=== PATIENT | male | born 1955 | race Hispanic/Latino ===

== ENCOUNTER 2023-02-18 11:00 | Observation (INO) | payer MEDICARE ==
[~2023-02-18] VITALS: Ht 174 cm; Wt 92.5 kg
[2023-02-24 10:21] VITALS: BP 130/70; PULSE 60; RESP 18
[2023-02-24 10:31] LABS: BASOPHILS # (AUTO) 0.02 K/uL (0.00-0.20); BASOPHILS % (AUTO) 0.5 % (0.0-5.0); EOSINOPHILS # (AUTO) 0.19 K/uL (0.00-0.70); EOSINOPHILS % (AUTO) 5.1 % (0.0-8.0); HEMATOCRIT 40.2 % (42-54); IMMATURE GRANULOCYTE ABSOLUTE 0.02 K/uL (0-1); LYMPHOCYTES # (AUTO) 1.4 K/uL (1.0-4.8); LYMPHOCYTES % (AUTO) 36.9 % (21.0-51.0); MEAN CORPUSCULAR HEMOGLOBIN 32.1 pg (27.0-33.0); MEAN CORPUSCULAR HGB CONC 32.3 g/dL (32.0-36.0); MEAN CORPUSCULAR VOLUME 99.3 fL (79-99); MONOCYTES # (AUTO) 0.4 K/uL (0.1-1.0); MONOCYTES % (AUTO) 9.5 % (3.0-13.0); NEUTROPHILS # (AUTO) 1.8 K/uL (1.8-7.7); NEUTROPHILS % (AUTO) 47.5 % (40.0-77.0); PLATELET COUNT (AUTO) 154 K/uL (130-400); RED BLOOD CELL COUNT(AUTO) 4.05 MIL/uL (4.50-6.20); RED CELL DISTRIBUTION WIDTH 12.5 % (11.0-15.5); WHITE BLOOD COUNT (AUTO) 3.7 K/uL (4.8-10.8)
[2023-02-24 10:41] LABS: POTASSIUM 4.5 mmol/L (3.5-5.1)
[2023-02-24 10:42] LABS: INR 0.96 (0.85-1.15); PROTHROMBIN TIME 11.2 SEC (9.6-11.6)
[2023-02-24 10:43] LABS: CREATININE 0.7 mg/dL (0.5-1.5); PARTIAL THROMBOPLASTIN TIME 28.5 SEC (26.3-35.5); POTASSIUM 4.5 mmol/L (3.5-5.1)
[2023-02-24] MEDS ORDERED: LIDOCAINE 2%-EPI PF 30 ML+BUPIVACAINE/PF 0.25% 30ML /60ML SYR IJ SCH ×2 (12:30)
[2023-02-24] MEDS ORDERED: ASCO500C6 PO (13:58)
[2023-02-24] MEDS ORDERED: TAMS-1 PO (13:58)
[2023-02-24] MEDS ORDERED: ATOR10 PO (13:58)
[2023-02-24] MEDS ORDERED: MULT-1289 PO (13:58)
[2023-02-24] MEDS ORDERED: VITAMIN D3 PO (13:58)
[2023-02-27] VITALS (34 sets, daily range): BP systolic 99–136; BP diastolic 44–81; PULSE 64–97; RESP 11–18
[2023-02-27] MEDS ORDERED: LACTATED RINGERS 1000ML 1,000 ML IV ONE (06:17)
[2023-02-27] MEDS ORDERED: CEFAZOLIN SODIUM 2 GM VIAL ONE (06:17)
[2023-02-27] MEDS ORDERED: SUCCINYLCHOLINE CHLORIDE 20 MG/ML 10 ML VIAL ONE (06:55)
[2023-02-27] MEDS ORDERED: LIDOCAINE PF 100MG/5ML (2%) SYRINGE 5ML ONE ×2 (06:55→11:02)
[2023-02-27] MEDS ORDERED: PROPOFOL 10 MG/ML 20ML VIAL IV ONE (06:56)
[2023-02-27] MEDS ORDERED: ROCURONIUM 10MG/1ML SYR 10 MG/ML ML ONE ×2 (06:56→08:26)
[2023-02-27] MEDS ORDERED: NEOSTIGMINE 5MG/5ML SYR IV ONE (06:56)
[2023-02-27] MEDS ORDERED: DEXAMETHASONE SOD PHOSPHATE 10MG/ML 1ML VIAL ONE ×2 (06:56→07:00)
[2023-02-27] MEDS ORDERED: GLYCOPYRROLATE 1 MG/5 ML SYRINGE ONE (06:56)
[2023-02-27] MEDS ORDERED: ONDANSETRON 4MG INJ ONE ×2 (06:56→07:01)
[2023-02-27] MEDS ORDERED: MIDAZOLAM HCL 1 MG/ML 2ML VIAL ONE (06:56)
[2023-02-27] MEDS ORDERED: FENTANYL CITRATE PF 50 MCG/1 ML 2ML VIAL ONE ×3 (06:57→10:24)
[2023-02-27] MEDS ORDERED: ARTIFICIAL TEARS 3.5 GM OINTMENT ONE (07:03)
[2023-02-27] MEDS ORDERED: OXYMETAZOLINE HCL SPRAY 15 ML BOTTLE ONE (07:04)
[2023-02-27] MEDS ORDERED: CEFAZOLIN SODIUM 1 GM VIAL ONE (07:09)
[2023-02-27] MEDS ORDERED: THROMBIN-JMI 20000 UNIT KIT TP ONE (07:10)
[2023-02-27] MEDS ORDERED: MORPHINE PF 100MG/10ML AMP IV ONE (07:26)
[2023-02-27] MEDS ORDERED: LIDOCAINE 2%-EPI PF 30 ML+BUPIVACAINE/PF 0.25% 30ML /60ML SYR IJ SCH ×2 (07:30)
[2023-02-27] MEDS ORDERED: CEFAZOLIN SODIUM 2 GM VIAL IVPB ONE (08:00)
[2023-02-27] MEDS ORDERED: MORPHINE 10MG VIAL IVP ONE (08:03)
[2023-02-27] MEDS ORDERED: THROMBIN 20000 UNITS/VIAL POWDER TP ONE (08:03)
[2023-02-27] MEDS ORDERED: CEFAZOLIN SODIUM 1 GM VIAL IVPB ONE (08:04)
[2023-02-27] MEDS ORDERED: EPHEDRINE SULFATE 50 MG/ML AMPULE ONE (08:16)
[2023-02-27] MEDS ORDERED: 0.9%NACL 10ML VIAL IVP PRN (11:30)
[2023-02-27] MEDS ORDERED: MORPHINE 2 MG SYG IVP PRN (11:30)
[2023-02-27] MEDS: LACTATED RINGERS 1000ML 1,000 ML IV SCH ×2 (11:30→22:59)
[2023-02-27] MEDS ORDERED: PROMETHAZINE HCL 25 MG/ML 1ML AMPULE IM PRN (11:30)
[2023-02-27] MEDS ORDERED: HYDROCODONE/ACETAMINOPHEN 5/325 MG TAB PO PRN (11:30)
[2023-02-27] MEDS: DEXAMETHASONE SOD PHOSPHATE 4 MG/ML 1ML VIAL IVP SCH ×3 (12:41→22:59)
[2023-02-27] MEDS: CEFAZOLIN SODIUM 1 GM VIAL IVPB SCH ×3 (16:17→22:59)
[2023-02-27] MEDS ORDERED: ATORVASTATIN 10 MG TABLET PO SCH (21:00)
[2023-02-28 04:15] VITALS: BP 102/51; PULSE 86; RESP 18
[2023-02-28] MEDS: DEXAMETHASONE SOD PHOSPHATE 4 MG/ML 1ML VIAL IVP SCH (05:35)
[2023-02-28 08:00] VITALS: BP 112/60; PULSE 65; RESP 16; O2SAT 99
[2023-02-28] MEDS ORDERED: NON-FORMULARY MEDICATION 1 EACH (Ascorbic Acid (Vitamin C) 500 MG) PO SCH (09:00)
[2023-02-28] MEDS ORDERED: LUTEIN PO SCH (09:00)
[2023-02-28] MEDS ORDERED: MULTIVIT MIN PO SCH (09:00)
[2023-02-28] MEDS ORDERED: VITAMIN D3 2000 UNIT PO SCH (09:00)
[2023-02-28] MEDS ORDERED: TAMSULOSIN HCL 0.4 MG CAP.ER.24H PO SCH (09:00)
[2023-02-28] MEDS ORDERED: LYCOPEN PO SCH (09:00)
[2023-02-28] MEDS ORDERED: ASCORBIC ACID 500 MG TAB PO SCH (09:00)
[2023-02-28] MEDS ORDERED: [UNRECOGNIZED DRUG - OTHER] PO SCH (09:00)
== END 2023-02-28 11:20 | disposition home or self-care (01) ==
LOC: EDSTATUS 02-24 11:00 → DAHIP 02-27 05:38 → 4AH 02-27 17:02
PROVIDERS: ADMIT Neurological Surgery; ATTEND Neurological Surgery
DX: M48.061 Spinal stenosis, lumbar region without neurogenic claudication (principal); Z20.822 Contact with and (suspected) exposure to COVID-19; I10 Essential (primary) hypertension; E78.5 Hyperlipidemia, unspecified; G14 Postpolio syndrome; Z79.899 Other long term (current) drug therapy; Z98.890 Other specified postprocedural states
CPT/HCPCS: 80051; 80048; 85025; 85610; 85730; 87426; 36415; 71045; 63047; 63048 ×2; 96374; 96376 ×2; 72020; A6260; G0378 ×18; G0379; A4663; J7120 ×2; A4344; J3010 ×3; J0690 ×5; J3490 ×5; J1100 ×6; J2710; J0330; J2001 ×2; J2250; J2704; J2274; J2405 ×2; J2270; A4215; A4223; A4222; A4221; A4600; A4510; 96365; 96375